=== PATIENT | female | born 1960 | race Caucasian/White ===

== ENCOUNTER 2016-04-03 13:34 | Outpatient (CLI) | payer OTHER ==
--- NOTE | 2016-04-04 08:37 | Diagnostic Imaging Report ---
[id number] [facility].[address] [id number] Report Submission Date: Apr 03, 2016 2:03:25 PM INFRASTRUCTURE ADMINISTRATOR Patient Study Name: ASHWINI VARGHESE Date: Apr 03, 2016 1:42:00 PM INFRASTRUCTURE ADMINISTRATOR Modality Type: CR Gender: F Description: UPPER EXTREMITY : 58 Institution: Physician: SONU HYATT Left elbow -three views CLINICAL HISTORY: Fall on the ice on Sunday with injury. Pain. FINDINGS: Examination of the left elbow in AP, lateral and oblique views fails to demonstrate evidence of fracture, dislocation or other bone or joint pathology. Electronically signed on Apr 03, 2016 2:03:25 PM INFRASTRUCTURE ADMINISTRATOR by: Mega [email or web address]
== END 2016-04-03 13:35 ==
LOC: RAD 13:34
PROVIDERS: ATTEND Family Medicine
DX: M25.522 Pain in left elbow (principal); Z91.81 History of falling
CPT/HCPCS: 73070